=== PATIENT | female | born 1995 | race Two or more races ===

== ENCOUNTER 2018-06-28 10:28 | Observation (INO) | payer MEDICAID ==
[~2018-06-28] VITALS: Ht 160 cm; Wt 83.0 kg
[2018-08-05] MEDS ORDERED: PREN1TAB80 PO (10:07)
[2018-08-05 10:32] VITALS: BP 109/67
== END 2018-08-05 14:01 | disposition home or self-care (01) ==
LOC: EDSTATUS 10:28 → 4S 08-05 10:05
PROVIDERS: ADMIT Obstetrics & Gynecology; ATTEND Obstetrics & Gynecology
DX: O62.9 Abnormality of forces of labor, unspecified (principal); Z3A.38 38 weeks gestation of pregnancy
CPT/HCPCS: 81002; G0378

== ENCOUNTER 2018-08-12 09:30 | Inpatient (IN) | payer MEDICAID ==
[~2018-08-12] VITALS: Ht 160 cm; Wt 83.1 kg
[~2018-08-12 09:30] MED LIST: PREN1TAB80 PO
[2018-08-12] MEDS ORDERED: RINGERS SOLUTION,LACTATED 1,000 ML IV PRN (10:09)
[2018-08-12] MEDS ORDERED: AMPICILLIN SODIUM 2 GM/NS 100 ML IV ONE (10:15)
[2018-08-12] MEDS ORDERED: CITRIC ACID/SODIUM CITRATE 30 ML SOLUTION UDCUP PO PRN (10:15)
[2018-08-12] MEDS ORDERED: METOCLOPRAMIDE HCL 5 MG/ML 2 ML VIAL IVP PRN (10:15)
[2018-08-12 10:42] LABS: BASOPHILS % (AUTO) 0.2 % (0.0-2.0); EOSINOPHILS % (AUTO) 0.3 % (1.0-6.0); HEMATOCRIT 29.3 % (36-46); HEMOGLOBIN 9.3 g/dL (12.0-16.0); LYMPHOCYTES # (AUTO) 1.7 K/uL (1.0-4.8); LYMPHOCYTES % (AUTO) 15.9 % (22.0-44.0); MEAN CORPUSCULAR HEMOGLOBIN 25.5 pg (26.0-34.0); MEAN CORPUSCULAR HGB CONC 31.8 G/dL (31.0-37.0); MEAN CORPUSCULAR VOLUME 80 fL (80-100); MONOCYTES # (AUTO) 0.5 K/uL (0.1-1.0); NEUTROPHILS # (AUTO) 8.2 K/uL (1.8-7.7); NEUTROPHILS % (AUTO) 78.6 % (40.0-70.0); PLATELET COUNT (AUTO) 260 K/uL (150-450); RED BLOOD CELL COUNT(AUTO) 3.66 MIL/uL (4.00-5.20); RED CELL DISTRIBUTION WIDTH 16.3 % (11.5-14.5)
[2018-08-12 10:54] VITALS: BP 122/68
[2018-08-12] MEDS: RINGERS SOLUTION,LACTATED 1,000 ML IV SCH ×2 (11:06→13:25)
[2018-08-12] MEDS: FentaNYL CITRATE-PF 100 MCG/2 ML VIAL IVP PRN ×2 (12:36→12:43)
[2018-08-12] MEDS ORDERED: ROPIVACAINE HCL/PF 0.2% 100 ML ED ONE (12:47)
[2018-08-12] MEDS ORDERED: BUPIVACAINE HCL/PF 0.25% 10 ML VIAL ONE (12:48)
[2018-08-12] MEDS ORDERED: OXYTOCIN 30 UNITS/LACT RINGERS 500 ML IV ONE ×3 (12:49→15:58)
[2018-08-12] MEDS ORDERED: MINERAL OIL 30 ML UDCUP VG ONE (13:00)
[2018-08-12] MEDS ORDERED: ROPIVACAINE HCL/PF 0.2% 100 ML ED PRN (13:45)
[2018-08-12] MEDS ORDERED: ONDANSETRON HCL 4 MG/2 ML VIAL IVP PRN (13:45)
[2018-08-12] MEDS ORDERED: NALBUPHINE HCL 10 MG/ML VIAL IVP PRN ×2 (13:45)
[2018-08-12] MEDS ORDERED: DiphenhydrAMINE HCL 50 MG/ML VIAL IVP PRN (13:45)
[2018-08-12] MEDS ORDERED: AMPICILLIN SODIUM 1 GM/NS 50 ML IV SCH (15:00)
[2018-08-12] MEDS ORDERED: OxyCODONE HCL/ACETAMINOPHEN 5-325 MG TABLET PO PRN ×2 (16:00)
[2018-08-12] MEDS ORDERED: LIDOCAINE/PF 1% 30 ML VIAL INJ PRN (16:00)
[2018-08-12] MEDS ORDERED: LANOLIN 7 GM OINTMENT TP PRN (16:00)
[2018-08-12] MEDS ORDERED: MAGNESIUM HYDROXIDE SUSPENSION 30 ML UDCUP PO PRN (16:00)
[2018-08-12] MEDS ORDERED: BENZOCAINE 20%/MENTHOL 56 GM SPRAY CANISTER TP PRN (16:00)
[2018-08-12] MEDS ORDERED: IBUPROFEN 800 MG TABLET PO PRN (16:00)
[2018-08-12] MEDS ORDERED: GLYCERIN/WITCH HAZEL LEAF 40 PADS JAR TP PRN (16:00)
[2018-08-12] MEDS ORDERED: OXYGEN THERAPY IH SCH (20:00)
[2018-08-13 05:57] LABS: BASOPHILS % (AUTO) 0.4 % (0.0-2.0); EOSINOPHILS % (AUTO) 0.1 % (1.0-6.0); HEMATOCRIT 27.6 % (36-46); HEMOGLOBIN 8.8 g/dL (12.0-16.0); LYMPHOCYTES # (AUTO) 2.3 K/uL (1.0-4.8); LYMPHOCYTES % (AUTO) 19.5 % (22.0-44.0); MEAN CORPUSCULAR HEMOGLOBIN 25.3 pg (26.0-34.0); MEAN CORPUSCULAR HGB CONC 31.8 G/dL (31.0-37.0); MEAN CORPUSCULAR VOLUME 80 fL (80-100); MONOCYTES # (AUTO) 0.8 K/uL (0.1-1.0); MONOCYTES % (AUTO) 6.8 % (2.0-9.0); NEUTROPHILS # (AUTO) 8.7 K/uL (1.8-7.7); NEUTROPHILS % (AUTO) 73.2 % (40.0-70.0); PLATELET COUNT (AUTO)-OB 254 K/uL (150-450); RED BLOOD CELL COUNT(AUTO) 3.48 MIL/uL (4.00-5.20); RED CELL DISTRIBUTION WIDTH 16.3 % (11.5-14.5)
[2018-08-13] MEDS ORDERED: ACET-66 PO (15:01)
[2018-08-13] MEDS ORDERED: DSS100 PO (15:02)
[2018-08-13] MEDS ORDERED: IBUP-2070 PO (15:02)
== END 2018-08-13 16:10 | disposition home or self-care (01) | DRG 560 ==
LOC: 4S 09:30 → OBSVTOIN 09:30
PROVIDERS: ADMIT Obstetrics & Gynecology; ATTEND Obstetrics & Gynecology
PROC: 10907ZC Drainage of Amniotic Fluid, Therapeutic from Products of Conception, Via Natural or Artificial Opening (ICD-10-PCS; principal; 2018-08-12)
PROC: 10E0XZZ Delivery of Products of Conception, External Approach (ICD-10-PCS; 2018-08-12)
PROC: 0HQ9XZZ Repair Perineum Skin, External Approach (ICD-10-PCS; 2018-08-12)
PROC: 3E0R3BZ Introduction of Anesthetic Agent into Spinal Canal, Percutaneous Approach (ICD-10-PCS; 2018-08-12)
PROC: 00HU33Z Insertion of Infusion Device into Spinal Canal, Percutaneous Approach (ICD-10-PCS; 2018-08-12)
DX: O99.824 Streptococcus B carrier state complicating childbirth (principal); Z37.0 Single live birth; O70.0 First degree perineal laceration during delivery; Z3A.39 39 weeks gestation of pregnancy
CPT/HCPCS: 86850; 86900; 86901; J0290; J2590; J2795; J3010; J3490; J7120